=== PATIENT | male | born 1965 | race Two or more races ===

== ENCOUNTER 2024-05-08 10:37 | Emergency (ER) | payer SELFPAY | END 2024-05-08 13:35 | disposition home or self-care (01) | LOC: MW.ED 10:37 | DX: I10 Essential (primary) hypertension (principal); Z76.0 Encounter for issue of repeat prescription; Z75.8 Other problems related to medical facilities and other health care | CPT/HCPCS: 99283 ==

== ENCOUNTER 2024-05-19 14:03 | Emergency (ER) | payer OTHER, BC ==
[2024-05-19] MEDS ORDERED: Sodium Chloride 0.9% 2.5 ML Syringe FLUSH PRN (14:17)
[2024-05-19] MEDS ORDERED: Sodium Chloride 0.9% 10 ML Syringe FLUSH PRN (14:17)
[2024-05-19] MEDS: Iopamidol 755 MG/ML 500 ML Multipack Bottle IVPUSH STA (14:42)
[2024-05-19] MEDS: Sodium Chloride 0.9% 1,000 ML IV ONE (14:43)
[2024-05-19 14:53] LABS: BASOPHILS ABSOLUTE AUTO 0.06 K/uL (0.00-0.20); BASOPHILS PERCENT AUTO 0.7 % (0.0-1.0); EOSINOPHILS ABSOLUTE AUTO 0.21 K/uL (0.00-0.45); EOSINOPHILS PERCENT AUTO 2.3 % (0.0-6.0); HEMATOCRIT 45.8 % (42.0-52.0); HEMOGLOBIN 15.8 g/dL (14.0-18.0); IMMATURE GRAN ABSOLUTE AUTO 0.17 K/uL (0.00-0.05); IMMATURE GRAN PERCENT AUTO 1.8 % (0.0-0.4); LYMPHOCYTES ABSOLUTE AUTO 3.62 K/uL (1.00-4.80); LYMPHOCYTES PERCENT AUTO 39.4 % (24.0-44.0); MEAN CORPUSCULAR HGB CONC 34.5 g/dL (32.0-36.0); MEAN CORPUSCULAR VOLUME 86.9 fL (83.0-99.0); MEAN PLATELET VOLUME 9.2 fL (9.4-12.4); MONOCYTES ABSOLUTE AUTO 0.62 K/uL (0.00-0.80); MONOCYTES PERCENT AUTO 6.7 % (0.0-8.0); NEUTROPHILS ABSOLUTE AUTO 4.51 K/uL (1.80-7.70); NEUTROPHILS PERCENT AUTO 49.1 % (41.0-71.0); PLATELET COUNT,PLT 365 K/uL (150-400); RED BLOOD CELL COUNT 5.27 M/uL (4.52-5.90); WHITE BLOOD CELL COUNT,WBC 9.19 K/uL (3.9-11.3)
[2024-05-19 15:00] LABS: INR 0.99 (0.86-1.11)
[2024-05-19 15:13] LABS: ALANINE AMINOTRANSFERASE,ALT 44 IU/L (14-63); ALKALINE PHOSPHATASE 89 U/L (46-116); ASPARTATE AMNIOTRANSFERASE,AST 22 IU/L (15-37); BILIRUBIN TOTAL 0.5 mg/dL (0.2-1.0); BLOOD UREA NITROGEN,BUN 15 mg/dL (7.0-18.0); CALCIUM 9.4 mg/dL (8.5-10.1); CARBON DIOXIDE,CO2 24.8 mmol/L (21.0-32.0); CHLORIDE,CL 105 mmol/L (98-107); CREATININE 1.1 mg/dL (0.8-1.3); GLUCOSE RANDOM 117 mg/dL (74-106); POTASSIUM,K 3.9 mmol/L (3.5-5.1); PROTEIN TOTAL,TP 7.9 g/dL (6.4-8.2); SODIUM,NA 141 mmol/L (136-148)
[2024-05-19 15:20] LABS: ESTIMATED GFR 78 mL/min (>60)
== END 2024-05-19 17:10 ==
LOC: MW.ED 14:03
DX: S09.90XA Unspecified injury of head, initial encounter (principal); S19.9XXA Unspecified injury of neck, initial encounter; Z75.8 Other problems related to medical facilities and other health care; W22.8XXA Striking against or struck by other objects, initial encounter
CPT/HCPCS: 36415; 70450; 70496; 70498; 71045; 72125; 80053; 85025; 85610; 93005; 96360; 99285; J7030; Q9967; 93010; 99283